=== PATIENT | female | born 1935 | race Caucasian/White ===

== ENCOUNTER → 2018-10-11 | Outpatient (CLI) | payer OTHER ==
[~2018-10-11] MED LIST: COQ-10100 MG PO; KLOR-CON 1010 MEQ PO; MAG-AL PLUS SUS30 ML PO; NITROFURANTOIN25 GM PO; RESTORIL15 MG PO; SYNTHROID25 MC1 PO; TRAMADOL 50 MG50 MG PO; VITAMIN D3400 UNIT PO
--- NOTE | 2018-10-11 16:50 | EKG ---
[address] [address] ELECTROCARDIOGRAM REPORT Name: BRITTON HUBBARD [id number] ������������������ Admission: 10/11/18 ������������������ Attend Phys: Arthur Roberts MD Discharge: ������������������ Date of : 31 Report #: [id number] ����������������������������������������������������������������� [id number] THIS REPORT FOR: //name// [facility] Test Date: 2018-10-11 Test Time: 10:29:01 Pat Name: BRITTON HUBBARD Department: Room: Gender: F Glass Glazier: CAROL : 1935 Requested By: Arthur Roberts Order Number: [id number] MD: Bernard Sosa Measurements Intervals [place] Rate: 75 P: -84 MS: 162 QRS: 4 QRSD: 81 T: 1 QT: 394 QTc: 441 Interpretive Statements Sinus or ectopic atrial rhythm No previous ECG available for comparison Electronically Signed On 10-11-2018 16:50:06 ADULT BASIC EDUCATION MANAGER by Bernard Sosa [email or web address] ��������������������������������������������� <ELECTRONICALLY SIGNED> ���������������������������������������� By: Bernard Sosa MD ��������������������������������������������� 10/11/18 1650 1029 1029 Bernard Sosa MD /AKASH
== END ==
LOC: LITH 09:52
DX: N20.0 Calculus of kidney (principal); E07.9 Disorder of thyroid, unspecified; Z79.899 Other long term (current) drug therapy; Z88.8 Allergy status to other drugs, medicaments and biological substances; Z96.611 Presence of right artificial shoulder joint; Z90.710 Acquired absence of both cervix and uterus; Z98.890 Other specified postprocedural states

== ENCOUNTER 2019-01-25 16:13 | Inpatient (IN) | payer OTHER ==
[~2019-01-25] VITALS: Ht 152.4 cm; Wt 52.2 kg
[2019-01-25 20:15] VITALS: BP 134/77
[2019-01-25] MEDS ORDERED: POTASSIUM CITRA5 MEQ PO (21:23)
[2019-01-25] MEDS ORDERED: PROTONIX 20 MG20 M1 PO (21:24)
[2019-01-25] MEDS ORDERED: VITAMIN D3400 UNIT PO (21:26)
[2019-01-25] MEDS ORDERED: VITAMINC500 PO (21:27)
[2019-01-25] MEDS ORDERED: FISH OIL 1,001000 M2 PO (21:28)
[2019-01-25] MEDS ORDERED: MAGOX 400400 MG PO (21:29)
[2019-01-25] MEDS ORDERED: MELATIN3 MG PO (21:30)
[2019-01-25] MEDS ORDERED: FLORASTOR250 MG PO (21:31)
[2019-01-26 03:38] VITALS: BP 91/54
[2019-01-26 05:45] LABS: HEMATOCRIT 35.1 % (37.0-47.0); HEMOGLOBIN 11.9 gm/dL (12.0-15.0); MCH 33.5 pg (26.0-34.0); MCV 98.6 fL (80.0-100.0); RBC 3.56 mil/uL (4.20-5.00); RDW 13.6 % (10.5-14.5); WBC 6.5 thou/uL (4.0-11.0)
[2019-01-26 05:55] LABS: PROTIME 10.3 Seconds (9.3-11.4)
[2019-01-26 05:57] LABS: CALCIUM 8.9 mg/dL (8.5-10.1); CREATININE 0.7 mg/dL (0.6-1.0); MAGNESIUM 1.8 mg/dL (1.8-2.4); POTASSIUM 3.4 mmol/L (3.5-5.1)
[2019-01-26 07:31] VITALS: BP 96/51
--- NOTE | 2019-01-26 07:37 | NUR ---
admit pt arrived from [facility] via ambulance, being admitted with compression fracture to t 10 has an ir consult for kyphoplasty, vss oriented to room call light system and plan of care
[2019-01-26] MEDS ORDERED: LASIX 20 MG TAB20 MG PO (08:20)
[2019-01-26] MEDS ORDERED: SYNTHROID25 MC1 PO (08:21)
--- NOTE | 2019-01-26 11:29 | NUR ---
TOWARDS POC PT A/O X4, VSS, AFEBRILE. PAIN HAD KYPOPLASTY DONE. POST OP VITAL MONITORING INITIATED. PT ON BEDREST FOR 1 HR. UP WITH ASSIST. WILL CONTINUE TO MONITOR.
--- NOTE | 2019-01-26 14:20 | NUR ---
PT ADMITTED RELATED TO COMPRESSION FRACTURE OF T10. CM REVIEWED CHART AND SPOKE [facility] CARE TEAM. CM MET WITH PT, SON, AND DTR AT BEDSIDE THIS DAY. PT AND FAMILY INDICATED THAT PT RESIDES IN A HOUSE ALONE WITH 2 STEPS TO ENTER AND NO STEPS INSIDE. 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 PT INDICATED SHE HAD RECENTLY BEEN ON SERVICE WITH [email or web address]. PT'S PCP IS DR. ADAMS. IF CARE TEAM INDICATES THAT PT NEEDS POST ACUTE CARE STAY FAMILY AND PT WOULD WANT TO GO OT [facility]. CM TO FOLLOW INDIATED WITH DC PLANNING.
[2019-01-26 14:45] VITALS: BP 108/57
[2019-01-26 19:51] VITALS: BP 100/58
--- NOTE | 2019-01-27 01:53 | H ---
[facility] [place] [address] HISTORY AND PHYSICAL Name: BRITTON HUBBARD Room #: 461-P ADM IN M.R.#: [id number] Admission: 01/25/19 ������������������ Attend Phys: Rufino Garza Discharge: ������������������ Date of : 31 Report #: [id number] THIS REPORT FOR: //name// CC: Rik Garza DATE OF SERVICE: 01/25/2019 ATTENDING PHYSICIAN: Dr. Keene. PRIMARY CARE PHYSICIAN: Dr. Rik Sanchez. CHIEF COMPLAINT: Back pain. HISTORY OF PRESENT ILLNESS: The patient is an 83-year-old female who was actually admitted at [facility] on 01/21 after a fall at home. She says she had gotten up from her chair and was trying to ambulate using her walker and got dizzy and then fell against the wall. She did not lose consciousness, but did hit the top of her head on the wall. She immediately had mid back pain. She was evaluated at [facility] initially with a CT of the thoracic spine, which did show possible compression fracture of T10, but she was admitted mainly for pain control as well as a UTI at [facility]. For the UTI, she was treated with Rocephin and urine culture is showing E. coli, which is ledezma sensitive to Rocephin. She had an MRI today of the thoracic spine, which showed an acute T10 fracture, and she was still having significant back pain, so she was transferred here for evaluation for kyphoplasty. She denies any weakness in her lower extremities or numbness or tingling. She denies any radiation of her back pain into her leg. She has been having some chronic intermittent dizziness for many years. Her pain has been treated at [facility] with a [place] and a lidocaine patch, which she says has been helping. PAST MEDICAL HISTORY: GERD, hiatal hernia, osteoporosis, chronic kidney disease stage 3, UTIs, nephrolithiasis. 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 PAST SURGICAL HISTORY: Right shoulder replacement, right knee replacement, thumb surgery, hysterectomy, lithotripsy and cataract repair. ALLERGIES: AMOXICILLIN, unknown reaction. HOME MEDICATIONS: Fish oil 1000 mg daily, tramadol 50 mg b.i.d., temazepam 15 mg at bedtime, calcium citrate 1080 mg b.i.d., magnesium oxide 250 mg daily, Protonix 20 mg b.i.d., Florastor 250 mg daily, vitamin C daily, vitamin D daily, Coenzyme Q10 at 100 mg daily and melatonin 3 mg at bedtime p.r.n. Levothyroxine 25 mcg daily and Lasix 20 mg [address] [address] HISTORY AND PHYSICAL Name: BRITTON HUBBARD Room #: 461-P [facility] IN M.R.#: [id number] Admission: 01/25/19 ������������������ Attend Phys: Rufino Garza Discharge: ������������������ Date of : 31 Report #: [id number] SOCIAL HISTORY: The patient denies any tobacco, alcohol or drug use. She lives alone. She uses a rolling walker at home for ambulation. FAMILY HISTORY: Noncontributory due to advanced age. REVIEW OF SYSTEMS: Twelve-point review of systems was reviewed with the patient, otherwise negative unless stated in the HPI. PHYSICAL EXAMINATION: GENERAL: The patient is an alert, frail female in no acute distress. VITAL SIGNS: Temperature is 36.3, heart rate 72, respirations 18, blood pressure 134/77, oxygen 95% on room air. HEENT: PERRLA. Sclerae are nonicteric. Oral mucosa is pink and moist. NECK: Supple, no JVD noted. CARDIOVASCULAR: Normal S1, S2. No murmurs, rubs or gallops. RESPIRATORY: Breath sounds are clear bilaterally. No wheezing or rhonchi. Breathing is nonlabored. ABDOMEN: Soft, nontender, nondistended with positive bowel sounds. VASCULAR: No edema noted. Pedal pulses are 2+. NEUROLOGIC: The patient is alert and oriented x 3. Speech is clear. She is answering questions appropriately and following commands. Sensation is intact in lower extremities. No focal weakness noted. MUSCULOSKELETAL: She does have some point tenderness in the mid thoracic spine. SKIN: Intact. No rashes or lesions. She is somewhat pale. LABORATORIES AND DIAGNOSTICS: Blood work from 01/23 at [facility] showed a WBC of 6.9, hemoglobin 12.8, platelets 190. Sodium 143, potassium 3.6, BUN 18, creatinine 0.95 and glucose 90. CK is 53. Troponins negative. Magnesium 1.7. CT of the thoracic spine showed diffuse osteopenia and osteoporosis extending through the thoracic spine. There is 40% compression of the T8 vertebral body which is age indeterminate. There is central compression without posterior displacement. There is a 25-30% compression of the inferior endplate of T10, which is age indeterminate without posterior displacement. There is disk protrusion and osteophyte at the T10-T11 which abuts the anterior thecal sac and tapers the canal to 9 mm with minimal mild right foraminal tapering, and there is an 8 x 5 mm pleural based nodule in the right lung base. This is a high risk patient. Followup CT is recommended in 6 months. Chest x-ray showed emphysematous hyperinflation without findings of acute infiltrate or effusion. No pneumothorax is seen. CT of the head without contrast shows a large calcified midline extraaxial mass, felt to be consistent with meningioma correlating with the patient's previous MRI. There is moderate periventricular microvascular ischemia without findings of acute hemorrhage or acute infarct. There is mild volume loss. There is low attenuation along the sella with expansion felt to be related to history of empty sella noted on prior MRI and thoracic spine MRI is showing an acute fracture of T10 with 50% vertebral body compression. [facility] [address] [place] [address] HISTORY AND PHYSICAL Name: BRITTON HUBBARD Room #: 461-P [facility] IN ..#: [id number] Admission: 01/25/19 ������������������ Attend Phys: Rufino Garza Discharge: ������������������ Date of : 31 Report #: [id number] ASSESSMENT AND PLAN: 1. Acute T10 compression fracture. We will consult Interventional Radiology for kyphoplasty. We will keep her n.p.o. after midnight. Continue with pain control with [place] and Lidocaine patch. 2. Urinary tract infection. The patient has been treated with Rocephin at [facility] daily for 3 days. Urine culture is showing E. coli, which is sensitive to Rocephin, which we will continue daily. 3. Hypothyroidism. Continue with Synthroid. 4. Deep venous thrombosis prophylaxis, place sequential compression devices. We will continue to follow the patient closely throughout the hospitalization and make changes based on clinical status. ��������������������������������������������� <ELECTRONICALLY SIGNED> ���������������������������������������� By: GABRIEL Pfeiffer ��������������������������������������������� 01/27/19 0153 0828 0925 GABRIEL Pfeiffer /shahla
[2019-01-27 04:36] VITALS: BP 110/53
[2019-01-27 08:00] VITALS: BP 105/57
--- NOTE | 2019-01-27 08:39 | NUR ---
PROGRESS PT KYPHOPLASTY DONE INCISION TO T 11 COVERED WITH BANDAID SCANT OLD DRIED BLODDY DRAINAGE NOTED. PT REPORTS RELIEF OF PAIN, TAKING HYDROCONE WITH EFFECT Q 4 HRS, UP WITH SBA GB AND WALKER TOLERATING WELL. HOPES TO DISCHARGE TO REHAB TODAY.
--- NOTE | 2019-01-27 10:27 | NUR ---
DISCHARGE PLANNING. POST ACUTE RECOMMENDED AT DISCHARGE. REFERRAL FAXED TO [facility], PER PATIENT REQUEST. CALL PLACED TO JIMMIE CUMMINGS ADMISSIONS. ZOILA STATES PATIENT HAS BEEN TO [facility] BEFORE AND WILL REVIEW PATIENT CLINICALS. ZOILA TO RUN BENEFITS WELL AND WILL NOTIFY CM ONCE COMPLETED. FOLLOWING TO ASSIST.
[2019-01-27 13:48] VITALS: BP 106/63
--- NOTE | 2019-01-27 20:12 | NUR ---
LATE ENTRY: ASSUMED PATIENT CARE AT 0715. PATIENT A&O x 4; FELL AT HOME, FX T10, Kyphoplasty here at [facility] THIS ADMISSION. BACK PAIN, TAKES HYDROCODONE 5 MG PO. TAKES MEDICATION WHOLE WITH WATER. PATIENT UP WITH STAND BY ASSIST TO BATHROOM. PATIENT COMFORTABLE AT END OF THIS SHIFT AT 1900. CONTINUE T0 MONITOR.
[2019-01-27 21:25] VITALS: BP 102/41
[2019-01-28 04:40] VITALS: BP 96/64
--- NOTE | 2019-01-28 04:55 | NUR ---
PATIENT ALERT AND ORIENTED X4. DENIES PAIN. COOPERATIVE WITH CARE. PATIENT DID NOT GET OOB DURING THE NIGHT. RESTING QUIETLY. WILL MONITOR.
[2019-01-28 07:31] VITALS: BP 118/67
[2019-01-28] MEDS ORDERED: CEFUROXIME250 MG PO (10:25)
[2019-01-28] MEDS ORDERED: HYDROCODON-ACE1 EAC7 PO (10:25)
[2019-01-28] MEDS ORDERED: FLORANEX GRANU1 EACH PO (10:26)
[2019-01-28] MEDS ORDERED: CYCLOBENZAPRINE5 MG PO (10:30)
--- NOTE | 2019-01-28 16:33 | NUR ---
Assumed pt care this am. pt is alert and oriented x 4. Pt is able to ambulate from bed to toilet and back with her walker. Pt had a full bath with the aid of the wire coater. Pain managed with medication, POC followed. DC orders given, called for transport and report, faxed dc papers to facility. IV removed pt now dc
== END 2019-01-28 14:30 | DRG 516 ==
LOC: 4W 16:13
PROVIDERS: Nurse Practitioner Acute Care; ADMIT Hospitalist
DX: S22.089A Unspecified fracture of T11-T12 vertebra, initial encounter for closed fracture (principal); N39.0 Urinary tract infection, site not specified; K21.9 Gastro-esophageal reflux disease without esophagitis; N18.3 Chronic kidney disease, stage 3 (moderate); Z60.2 Problems related to living alone; Z96.611 Presence of right artificial shoulder joint; E03.9 Hypothyroidism, unspecified; M19.90 Unspecified osteoarthritis, unspecified site; Z96.651 Presence of right artificial knee joint; W05.0XXA Fall from non-moving wheelchair, initial encounter; E55.9 Vitamin D deficiency, unspecified; Y93.89 Activity, other specified; Z87.442 Personal history of urinary calculi; Z90.710 Acquired absence of both cervix and uterus; Z88.1 Allergy status to other antibiotic agents; Z79.899 Other long term (current) drug therapy; Y92.89 Other specified places as the place of occurrence of the external cause; Y99.8 Other external cause status
CPT/HCPCS: 10047